=== PATIENT | female | born 1995 | race Hispanic/Latino ===

== ENCOUNTER 2020-12-14 07:58 | Day surgery (SDC) | payer SELFPAY ==
[2020-12-12 13:16] LABS: BASOPHILS % (AUTO) 0.6 % (0.0-5.0); EOSINOPHILS % (AUTO) 0.8 % (0.0-8.0); HEMATOCRIT 40.5 % (36-48); LYMPHOCYTES % (AUTO) 28.6 % (21.0-51.0); MEAN CORPUSCULAR HEMOGLOBIN 29.6 pg (27.0-33.0); MEAN CORPUSCULAR HGB CONC 33.3 g/dL (32.0-36.0); MEAN CORPUSCULAR VOLUME 88.8 fL (79-99); MONOCYTES % (AUTO) 8.7 % (3.0-13.0); NEUTROPHILS % (AUTO) 60.5 % (40.0-77.0); PLATELET COUNT (AUTO) 212 K/uL (130-400); RED BLOOD CELL COUNT(AUTO) 4.56 MIL/uL (4.00-5.50); RED CELL DISTRIBUTION WIDTH 12.6 % (11.0-15.5); WHITE BLOOD COUNT (AUTO) 6.4 K/uL (4.8-10.8)
[2020-12-13 09:48] VITALS: BP 110/61
[~2020-12-14] VITALS: Ht 160 cm; Wt 52.0 kg
[2020-12-14] VITALS (16 sets, daily range): BP systolic 94–122; BP diastolic 52–81
[2020-12-14] MEDS ORDERED: LACTATED RINGERS 1000ML 1,000 ML IV ONE (08:19)
[2020-12-14] MEDS: CEFAZOLIN SODIUM 1 GM VIAL IVP SCH ×2 (08:30→09:15)
[2020-12-14] MEDS: CALDOLOR 800MG+NS 250ML 250 ML IV SCH ×2 (08:30→09:20)
[2020-12-14] MEDS ORDERED: PROPOFOL 10 MG/ML 20ML VIAL IV ONE (08:34)
[2020-12-14] MEDS ORDERED: LIDOCAINE PF 100MG/5ML (2%) SYRINGE 5ML ONE (08:34)
[2020-12-14] MEDS ORDERED: FENTANYL CITRATE PF 50 MCG/1 ML 2ML VIAL ONE (08:34)
[2020-12-14] MEDS ORDERED: STRONG IODINE SOLN 14ML BOTTLE ONE (08:39)
[2020-12-14] MEDS ORDERED: PHENYLEPHRINE HCL 10 MG/ML 1ML VIAL IV ONE (09:09)
[2020-12-14] MEDS ORDERED: 0.9%NACL 10ML VIAL ONE (09:09)
[2020-12-14] MEDS ORDERED: GLYCOPYRROLATE 1 MG/5 ML SYRINGE ONE (09:21)
[2020-12-14] MEDS ORDERED: MEPERIDINE-PF 25 MG/ML SYG ONE (09:54)
[2020-12-14] MEDS ORDERED: ACETAMINOPHEN WITH CODEINE 1 TAB TAB ONE (11:08)
[2020-12-14] MEDS ORDERED: ACETAMINOPHEN WITH CODEINE 1 TAB TAB PO SCH (11:30)
== END 2020-12-14 11:45 | disposition home or self-care (01) ==
LOC: DAH 07:58
PROVIDERS: ATTEND Obstetrics & Gynecology
DX: D06.7 Carcinoma in situ of other parts of cervix (principal); Z20.822 Contact with and (suspected) exposure to COVID-19; Z98.891 History of uterine scar from previous surgery; Z79.899 Other long term (current) drug therapy
CPT/HCPCS: 36415 ×2; 57520; 84703; 85025; 86850; 86900; 86901; 87635; 88307; A4215; A4221; A4222; A4223; A4351; A4556; A4606; A4663; C9803; J0690; J2001; J2175; J2370; J2704; J3010; J3490; J7120; J1741